=== PATIENT | female | born 1980 | race Caucasian/White ===

== ENCOUNTER 2016-07-22 21:13 | Emergency (ER) | payer SELFPAY ==
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
--- NOTE | 2016-07-22 22:28 | ED ORDER SUMMARY ---
..... Patient: DEBBY FAUST OrderSheet [facility] VisitID: [id number] [address] [place] [address] 35y, F Registration Date/Time: 07/22/2016 ORDER SHEET Weight: 90.7 kg (stated) Allergies: No Known Drug Allergy GENERAL ORDERS: CT Cervical Spine wo Cont Urgent (21:41 07/22/2016 Radha Huerta) (Ack 21:42 Janie ER Electrical Intern) (22:00 MCampbell) Shoulder 2V or more Right Urgent (21:41 07/22/2016 Radha Huerta) (Ack 21:42 Janie ER Electrical Intern) (22:00 MCampbell) Ice (21:42 07/22/2016 Radha Huerta) (Ack 21:45 JQuivey R.N.) (22:03 JQuivey R.N.) MEDICATION ORDERS: Tylenol PO 650 mg (NOW) (21:41 07/22/2016 Radha Huerta) (Ack 21:45 JQuivey R.N.) (22:03 JQuivey R.N.) IV FLUIDS: ORDER SHEET NOTES: [Electronically signed by Keshawn Saleh R.N. (22:44 07/22/2016)] [Electronically signed by Vladimir Vasquez Dr. (07:51 07/23/2016)] [Electronically locked/signed by Keshawn Saleh R.N. (22:44 07/22/2016)]
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
--- NOTE | 2016-07-22 22:28 | ED ORDER SUMMARY ---
..... Patient: DEBBY FAUST OrderSheet [facility] VisitID: [id number] [address] [place] [address] 35y, F Registration Date/Time: 07/22/2016 ORDER SHEET Weight: 90.7 kg (stated) Allergies: No Known Drug Allergy GENERAL ORDERS: CT Cervical Spine wo Cont Urgent (21:41 07/22/2016 Radha Huerta) (Ack 21:42 Janie ER Cut Out Operator) (22:00 MCampbell) Shoulder 2V or more Right Urgent (21:41 07/22/2016 Radha Huerta) (Ack 21:42 Janie ER Cut Out Operator) (22:00 MCampbell) Ice (21:42 07/22/2016 Radha Huerta) (Ack 21:45 JQuivey R.N.) (22:03 JQuivey R.N.) MEDICATION ORDERS: Tylenol PO 650 mg (NOW) (21:41 07/22/2016 Radha Huerta) (Ack 21:45 JQuivey R.N.) (22:03 JQuivey R.N.) IV FLUIDS: ORDER SHEET NOTES: [Electronically signed by Keshawn Saleh R.N. (22:44 07/22/2016)] [Electronically signed by Vladimir Vasquez Dr. (07:51 07/23/2016)] [Electronically locked/signed by Keshawn Saleh R.N. (22:44 07/22/2016)]
--- NOTE | 2016-07-23 07:52 | ED MAR SUMMARY ---
..... Medication Administration Record [facility] [address] [place] [address] Patient: DEBBY FAUST Visit ID: [id number] 35y, F Weight: 90.7 kg Height/Length: 65 in BMI: 33.3 ALLERGIES: No Known Drug Allergy Given 22:01 07/22/2016 Keshawn Saleh, RRoyerN. Medication Administered: TYLENOL [PO] (ACETAMINOPHEN), Dose: 650 mg PO. Medication Ordered: Tylenol PO 650 mg (NOW).
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
--- NOTE | 2016-07-23 07:52 | ED MED RECONCILIATION SUMMARY ---
Patient: ADY FAUSTA Raphael Medication Reconciliation Report [facility] VisitID: [id number] [address] [place] [address] 35y, F Registration Date/Time: 07/22/2016 Weight: 90.7 kg Height/Length: 65 in. BMI: 33.3 ALLERGIES: No Known Drug Allergy The patient's Home Medications are listed below: NONE. The source(s) of the original Home Medication information: patient patient's family member The following Medications were given to the patient in the Emergency Department: Tylenol [PO] PO 650 mg, administered: 07/22/2016 10:01:00 PM The following Medications were prescribed to the patient: Acetaminophen (available over the counter): take according to label instructions. -- Vladimir Vasquez Dr. Motrin (available over the counter): take according to label instructions. -- Vladimir Vasquez Dr.
--- NOTE | 2016-07-23 07:52 | ED MED RECONCILIATION SUMMARY ---
Patient: ADY FAUSTA Raphael Medication Reconciliation Report [facility] VisitID: [id number] [address] [place] [address] 35y, F Registration Date/Time: 07/22/2016 Weight: 90.7 kg Height/Length: 65 in. BMI: 33.3 ALLERGIES: No Known Drug Allergy The patient's Home Medications are listed below: NONE. The source(s) of the original Home Medication information: patient patient's family member The following Medications were given to the patient in the Emergency Department: Tylenol [PO] PO 650 mg, administered: 07/22/2016 10:01:00 PM The following Medications were prescribed to the patient: Acetaminophen (available over the counter): take according to label instructions. -- Vladimir Vasquez Dr. Motrin (available over the counter): take according to label instructions. -- Vladimir Vasquez Dr.
--- NOTE | 2016-07-23 07:52 | ED MAR SUMMARY ---
..... Medication Administration Record [facility] [address] [place] [address] Patient: DEBBY FAUST Visit ID: [id number] 35y, F Weight: 90.7 kg Height/Length: 65 in BMI: 33.3 ALLERGIES: No Known Drug Allergy Given 22:01 07/22/2016 Keshawn Saleh, RRoyerN. Medication Administered: TYLENOL [PO] (ACETAMINOPHEN), Dose: 650 mg PO. Medication Ordered: Tylenol PO 650 mg (NOW).
== END 2016-07-22 22:43 | disposition home or self-care (01) ==
LOC: ED SRH 21:13
DX: S13.4XXA Sprain of ligaments of cervical spine, initial encounter (principal); S40.011A Contusion of right shoulder, initial encounter; V58.3XXA Unspecified occupant of pick-up truck or van injured in noncollision transport accident in nontraffic accident, initial encounter; Y93.9 Activity, unspecified; Y99.9 Unspecified external cause status; Y92.9 Unspecified place or not applicable